=== PATIENT | female | born 1960 | race Caucasian/White ===

== ENCOUNTER 2018-10-12 18:28 | Inpatient (IN) | payer OTHER ==
[~2018-10-12] VITALS: Ht 157.5 cm; Wt 60.8 kg
== END 2018-10-17 17:33 | disposition home or self-care (01) | DRG 392 ==
LOC: ER 18:28 → SEC-K 10-13 06:42 → SURH 10-13 06:42 → MEDJ 10-17 17:27 → SURH 10-17 17:30
PROVIDERS: ADMIT Student in an Organized Health Care Education/Training Program
PROC: BW21Y0Z Computerized Tomography (CT Scan) of Abdomen and Pelvis using Other Contrast, Unenhanced and Enhanced (ICD-10-PCS; principal; 2018-10-17)
DX: K57.20 Diverticulitis of large intestine with perforation and abscess without bleeding (principal)